=== PATIENT | female | born 1940 | race Caucasian/White ===

== ENCOUNTER 2019-01-31 10:03 | Outpatient (CLI) | payer MEDICARE ==
[2019-01-31] VITALS (8 sets, daily range): BP systolic 116–131; BP diastolic 52–61; PULSE 78–89; TEMP 98.3–98.7
[~2019-01-31] VITALS: Ht 162.6 cm; Wt 40.5 kg
[2019-01-31] MEDS ORDERED: TOPROL XL 25MG25 MG PO (11:00)
[2019-01-31] MEDS ORDERED: NORCO 325 MG-51 TAB PO (11:01)
--- NOTE | 2019-01-31 12:17 | NUR ---
SEE MERGE DOCUMENTATION FOR MEDICATION ADMINISTRATION TIMES AND INTRA/POST PROCEDURE SEDATION ASSESSMENTS.
--- NOTE | 2019-01-31 13:30 | NUR ---
Pt returned to EU 10 per bed s/p vertebroplasty. Pt resting well, at bedside. Pt reports pre procedure pain level 7/10. Pt reports current pain level 3/10.
--- NOTE | 2019-01-31 14:45 | NUR ---
Pt has ambulated with gait belt and SBA, voided and rona PO intake s n/v.
--- NOTE | 2019-01-31 15:40 | NUR ---
PIV removed with catheter intact.
--- NOTE | 2019-01-31 15:45 | NUR ---
Dr. Macedo called to inquire about pt. Dr. Macedo informed pt has ambulated with pain 3/10 post procedure. Pre procedure pain /.
--- NOTE | 2019-01-31 15:50 | NUR ---
Pt discharged per w/c by nurse with .
== END 2019-01-31 16:19 | disposition home or self-care (01) ==
LOC: COL.CAR 10:03
DX: S32.019A Unspecified fracture of first lumbar vertebra, initial encounter for closed fracture (principal); S32.029A Unspecified fracture of second lumbar vertebra, initial encounter for closed fracture; S32.039A Unspecified fracture of third lumbar vertebra, initial encounter for closed fracture; F17.210 Nicotine dependence, cigarettes, uncomplicated; Z90.710 Acquired absence of both cervix and uterus; Z90.49 Acquired absence of other specified parts of digestive tract; I10 Essential (primary) hypertension
CPT/HCPCS: J2250; J3010; J7120